=== PATIENT | female | born 1990 | race Caucasian/White ===

== ENCOUNTER → 2019-10-04 | Outpatient (CLI) | payer OTHER ==
--- NOTE | 2019-10-04 11:12 | Diagnostic Imaging Report ---
PROCEDURE: US Non-ob pelvis comp/trans. TECHNIQUE: Multiple realtime grayscale images were obtained of the pelvis in various projections endovaginally. Transabdominal imaging was also performed. INDICATION: Dysmenorrhea. There are no prior studies available for comparison. FINDINGS: The uterus is nongravid and not enlarged measuring 6.1 x 3.4 x 5.1 cm. The endometrial lining is slightly thickened measuring 9 mm (normal 5 mm or less). This finding is nonspecific, however. Correlation with patient's menstrual cycle would be recommended. There is no focal mass involving the uterus to suggest a fibroid. Both ovaries were identified. There is good blood flow to each ovary and there is no sign of torsion. There are a few subcentimeter follicles associated with the ovaries but there is no sign of a solid ovarian mass. There is no pelvic mass identified, but there is a small amount of free fluid. This is nonspecific. IMPRESSION: 1. The uterus is not enlarged. The endometrial lining is slightly thickened but this finding is nonspecific. Recommendations as above. 2. There is no acute abnormality of the ovaries. 3. There is a small amount of nonspecific free fluid. Dictated by: Dictated on workstation # [id number]
== END ==
LOC: RAD 09:30
PROVIDERS: ATTEND Obstetrics & Gynecology
DX: N94.4 Primary dysmenorrhea (principal)
CPT/HCPCS: 76830; 76856

== ENCOUNTER → 2019-12-06 | Outpatient (CLI) | payer OTHER | LOC: LAB 08:56 | PROVIDERS: ATTEND Obstetrics & Gynecology | DX: O20.0 Threatened abortion (principal) | CPT/HCPCS: 36415; 84702 ==

== ENCOUNTER → 2019-12-21 | Outpatient (CLI) | payer OTHER | LOC: LAB 10:02 | PROVIDERS: ATTEND Obstetrics & Gynecology | DX: O20.0 Threatened abortion (principal) | CPT/HCPCS: 36415; 84702 ==

== ENCOUNTER 2020-01-03 07:21 | Day surgery (SDC) | payer OTHER ==
[2020-01-03] VITALS (10 sets, daily range): BP systolic 102–128; BP diastolic 69–92
[~2020-01-03] VITALS: Ht 170.2 cm; Wt 74.5 kg
[2020-01-03] MEDS ORDERED: LIDOCAINE PF 2% 5 ML (XYLOCAINE) VIAL ONE (07:43)
[2020-01-03] MEDS ORDERED: proPOfol 200 MG/20 ML (DIPRIVAN) VIAL IV ONE (07:43)
[2020-01-03] MEDS ORDERED: MIDAZOLAM 2 MG/2 ML (VERSED) VIAL ONE (07:43)
[2020-01-03] MEDS ORDERED: ONDANSETRON 4 MG/2 ML (SDV) Z0FRAN ONE (07:43)
[2020-01-03] MEDS ORDERED: fentaNYL INJECTION 100 MCG/2 ML AMP ONE (07:43)
[2020-01-03] MEDS ORDERED: SEVOFLURANE (ULTANE) 15 ML INHAL SOLN ONE ×3 (07:46→09:57)
[2020-01-03] MEDS ORDERED: LACTATED RINGERS 1,000 ML IV PRN (07:48)
[2020-01-03 08:13] LABS: BASOPHILS % (AUTO) 0 % (0-10); EOSINOPHILS # (AUTO) 0.1 10^3/uL (0.0-0.3); EOSINOPHILS % (AUTO) 3 % (0-10); HEMATOCRIT 41 % (35-52); HEMOGLOBIN 14.1 G/DL (11.5-16.0); LYMPHOCYTES # (AUTO) 1.8 X 10^3 (1.0-4.0); LYMPHOCYTES % (AUTO) 37 % (12-44); MEAN CORPUSCULAR HEMOGLOBIN 31 PG (25-34); MEAN CORPUSCULAR HGB CONC 35 G/DL (32-36); MEAN CORPUSCULAR VOLUME 89 FL (80-99); MEAN PLATELET VOLUME 10.5 FL (7.4-10.4); MONOCYTES # (AUTO) 0.6 X 10^3 (0.0-1.0); MONOCYTES % (AUTO) 12 % (0-12); NEUTROPHILS # (AUTO) 2.3 X 10^3 (1.8-7.8); NEUTROPHILS % (AUTO) 48 % (42-75); PLATELET COUNT 202 10^3/uL (130-400); RED CELL DISTRIBUTION WIDTH 11.6 % (10.0-14.5); WHITE BLOOD COUNT 4.9 10^3/uL (4.3-11.0)
[2020-01-03] MEDS ORDERED: D5 LR IV SOLUTION 1,000 ML IV SCH (09:27)
--- NOTE | 2020-01-03 09:27 | Progress Note-Pre Operative ---
Pre-Operative Progress Note H&P Reviewed The H&P was reviewed, patient examined and no changes noted. Date Seen by Provider: Jan 03, 2020 Time Seen by Provider: 09:20 Date H&P Reviewed: Jan 03, 2020 Time H&P Reviewed: 09:20 Pre-Operative Diagnosis: Incomplete PATI Bacon DO Jan 03, 2020 09:27
--- NOTE | 2020-01-03 09:29 | Discharge Inst-Women's Service ---
Discharge Inst-Women's Serv Depart Medication/Instructions New, Converted or Re-Newed RX: RX on Chart (Patient may take OTC Motrin 600 mg q 6hr) Problems Reviewed?: Yes Consults/Follow Up Additional Follow Up: Yes Orders/Referrals Friday nurse visit for repeat HCG. Follow up with Dr. Chaves in 7-10 days Diet Discharge Diet: No Restrictions Symptoms to Report to : Bleeding Excessive, Pain Increased, Fever Over 101 Degrees F, Vaginal Bleeding Increase, Questions/Concerns PATI CHAVES DO Jan 03, 2020 09:29
[2020-01-03] MEDS ORDERED: KETOROLAC 30 MG/ML VIAL IVP ONE (09:30)
[2020-01-03] MEDS ORDERED: ONDANSETRON 4 MG/2 ML (SDV) Z0FRAN IVP PRN ×2 (09:30→10:15)
[2020-01-03] MEDS ORDERED: KETOROLAC 30 MG/ML VIAL ONE (09:31)
[2020-01-03] MEDS: METHOTREXATE 50 MG/2 ML PF IM ONE ×2 (09:32→09:35)
[2020-01-03] MEDS ORDERED: morphine INJ 10 MG/ML 1ML (SYR OR VIAL) IVP ONE (10:15)
[2020-01-03] MEDS ORDERED: MEPERIDINE (DEMEROL) INJ 50 MG/ML IVP ONE (10:15)
--- NOTE | 2020-01-03 10:50 | NUR ---
TO AMB SURG FROM PAR PER CART. ALERT, DENIES COMPLAINTS. V-PAD IN PLACE WITH MINIMAL AMOUNT OF BLOODY DRAINAGE. PO FLUIDS PROVIDED.
--- NOTE | 2020-01-03 11:45 | NUR ---
UP WITH ASSIST TO BR, GAIT STEADY, VOIDED WITHOUT PROBLEM.
--- NOTE | 2020-01-03 11:55 | NUR ---
TAKING PO FLUIDS WITHOUT PROBLEM. ALERT,DENIES COMPLAINTS. CONTINUES TO HAVE MINIMAL AMOUNT OF BLOODY DRAINAGE ON V-PAD. STATES SHE IS READY FOR DISMISSAL.
--- NOTE | 2020-01-03 14:08 | Anesthesia-General Post-Op ---
General Patient Condition Mental Status/LOC: Same as Preop Cardiovascular: Satisfactory Nausea/Vomiting: Absent Respiratory: Satisfactory Pain: Controlled Complications: Absent Post Op Complications Complications None Follow Up Care/Instructions Patient Instructions None needed. Anesthesia/Patient Condition Patient Condition Patient is doing well, no complaints, stable vital signs, no apparent adverse anesthesia problems. No complications reported per nursing. ABBY RAMOS CRNA Jan 03, 2020 14:08
--- NOTE | 2020-01-03 14:55 | OPERATIVE REPORT ---
DATE OF SERVICE: PREOPERATIVE DIAGNOSES: A 29-year-old G1, P0 with incomplete . POSTOPERATIVE DIAGNOSIS: A 29-year-old G1, P0 with incomplete . PROCEDURE: D and C. SURGEON: Pati Chaves DO ANESTHESIA: LMA. ESTIMATED BLOOD LOSS: Minimal. URINE OUTPUT: 50 mL, clear drained at the end of the procedure. FLUIDS: 800 mL lactated Ringer's solution. FINDINGS: Grossly normal-appearing external female genitalia. Normal-appearing vagina, normal appearing cervix. Uterine sounding depth approximately 7 cm. SPECIMEN SENT: Endometrial curettings. INDICATIONS FOR PROCEDURE: This 29-year-old female is a patient who had initially made appointment for early onset of . Her initial labs were within normal limits; however, she began bleeding and her beta hCG began to drop. Following serial hCGs weekly, it plateaued at around 200 and then stopped going down and started slightly going up into the mid 200s. Due to this persistent, I had concerns with the patient in either having incomplete residual placental tissue that had stayed within the uterus that or a subsequent heterotopic ectopic . I discussed with the patient in detail what all of this meant as far as management and followup. I discussed with the patient proceeding with D and C for the possibility of retained endometrial products and also a dose of methotrexate for any type of ectopic products that may be persistent. After all of her questions were answered, consent was obtained in the preoperative area and the patient was taken to the operating room. OPERATIVE REPORT IN DETAIL: Once in the operating room, anesthesia was found to be adequate, placed in dorsal lithotomy position, prepped and draped in normal sterile fashion. Timeout was performed. Straight catheterization was performed. Weighted speculum was inserted to the patient's vagina. A right angle retractor was used to visualize the cervix, which was grasped at 12 o'clock position using a long Allis clamp. I then gently sound the uterine cavity, depth was found to be approximately 7 cm, gently dilated the cervix using Hanks dilators. I then performed a gentle curettage of all surfaces of the endometrium using a medium size endometrial curette. This tissue is collected and sent as endometrial curettings. I then removed all the other instruments from the patient's vagina. The patient tolerated the procedure well and sent to recovery in stable condition. Lap and sponge counts were correct at the end of the procedure. Instrument counts correct as well. Methotrexate was given while the patient is anesthetized. Job ID: [id number] DocumentID: [id number] Dictated Date: 01/03/2020 10:36:36 Business Strategist Date: 01/03/2020 14:54:31 Dictated By: PATI CHAVES DO
== END 2020-01-03 12:03 | disposition home or self-care (01) ==
LOC: SDC 07:21
PROVIDERS: ATTEND Obstetrics & Gynecology
DX: O03.4 Incomplete spontaneous abortion without complication (principal)
CPT/HCPCS: 36415; 85025; 86850; 86900; 86901; 87081

== ENCOUNTER 2020-01-17 08:23 | Outpatient (RCR) | payer OTHER | END 2020-03-26 | disposition home or self-care (01) | LOC: LAB 08:23 | PROVIDERS: ATTEND Obstetrics & Gynecology | DX: O20.0 Threatened abortion (principal); Z3A.00 Weeks of gestation of pregnancy not specified | CPT/HCPCS: 36415; 84702 ==

== ENCOUNTER → 2020-10-16 | Outpatient (CLI) | payer OTHER ==
--- NOTE | 2020-10-16 16:43 | Diagnostic Imaging Report ---
INDICATION: patient, survey TECHNIQUE: Multiple real-time grayscale images were obtained over the gravid uterus. COMPARISON: None during this FINDINGS: A single live intrauterine fetus is seen measuring 20 weeks 6 days by composite measurements with heart rate of 140 bpm. The fetus is in cephalic presentation. Placenta is posterior with no evidence of previa. Amniotic fluid is qualitatively normal. The distance from the placental tip to the internal cervical os was 6.2 cm. The cervical length is 4.6 cm. survey showed normal-appearing kidneys, bladder and stomach. Normal-appearing intracranial ventricles were seen. Four-chamber heart view appeared normal. Views of the spine were normal. Three-vessel cord and cord insertion appeared normal. Maternal adnexa showed no free fluid. Biometrical measurements are as follows: Biparietal 4.95 cm, age 21 weeks 0 days. Head circumference 18.61 cm, age 21 weeks 0 days. Abdominal circumference 16.41 cm, age 20 weeks 6 days. Femur length 3.27 cm, age 20 weeks 2 days. Sonographic estimate age: 20 weeks 6 days. Sonographic estimated date of delivery: 02/27/2021. Estimated Weight: 357 gm (+/- 52 gm). LMP percentile: 81%. heart rate: 140 beats per minute. number: 1 of 1. IMPRESSION: Single live intrauterine fetus measuring 20 weeks 6 days in size, as described above. There was no detectable abnormality. Dictated by: Dictated on workstation # [id number]
== END ==
LOC: RAD 15:07
PROVIDERS: ATTEND Obstetrics & Gynecology
DX: Z34.02 Encounter for supervision of normal first pregnancy, second trimester (principal); Z3A.20 20 weeks gestation of pregnancy
CPT/HCPCS: 76805

== ENCOUNTER 2021-03-08 19:00 | Inpatient (IN) | payer OTHER ==
[~2021-03-08] VITALS: Ht 170 cm; Wt 93.0 kg
[2021-03-08 19:45] VITALS: BP 130/83
[2021-03-08] MEDS ORDERED: LIDOCAINE/EPI 2% 1:200,00 (XYLOCAINE) 20 ML VIAL INJ PRN (19:45)
[2021-03-08] MEDS ORDERED: TERBUTALINE INJ 1 MG/ML (BRETHINE) AMP SC PRN (19:45)
[2021-03-08] MEDS: LACTATED RINGERS 1,000 ML IV SCH (20:41)
[2021-03-08 20:47] LABS: BILIRUBIN,URINE NEGATIVE (NEGATIVE); CLARITY,URINE CLEAR; COLOR,URINE YELLOW; GLUCOSE, URINE (UA) NEGATIVE (NEGATIVE); KETONES,URINE NEGATIVE (NEGATIVE); LEUKOCYTE ESTERASE ,URINE TRACE (NEGATIVE); NITRITE,URINE NEGATIVE (NEGATIVE); PROTEIN,URINE NEGATIVE (NEGATIVE)
[2021-03-08 20:48] LABS: BASOPHILS % (AUTO) 0 % (0-10); EOSINOPHILS % (AUTO) 0 % (0-10); HEMATOCRIT 37 % (35-52); HEMOGLOBIN 12.7 g/dL (11.5-16.0); LYMPHOCYTES # (AUTO) 2.5 10^3/uL (1.0-4.0); LYMPHOCYTES % (AUTO) 23 % (12-44); MEAN CORPUSCULAR HEMOGLOBIN 29 pg (25-34); MEAN CORPUSCULAR HGB CONC 35 g/dL (32-36); MEAN CORPUSCULAR VOLUME 84 fL (80-99); MONOCYTES # (AUTO) 1.1 10^3/uL (0.0-1.0); MONOCYTES % (AUTO) 10 % (0-12); NEUTROPHILS # (AUTO) 7.3 10^3/uL (1.8-7.8); NEUTROPHILS % (AUTO) 66 % (42-75); PLATELET COUNT 243 10^3/uL (130-400); WHITE BLOOD COUNT 10.9 10^3/uL (4.3-11.0)
[2021-03-08 20:54] LABS: BACTERIA,URINE FEW /HPF; WBC,URINE 0-2 /HPF
[2021-03-08 21:00] VITALS: BP 130/83
[2021-03-08 21:17] VITALS: BP 130/83
[2021-03-08 22:00] VITALS: BP 110/79
[2021-03-08] MEDS: CATHETER FLUSH 10 ML SYR IV SCH (22:22)
[2021-03-08 23:00] VITALS: BP 101/58
[2021-03-09] VITALS (49 sets, daily range): BP systolic 94–137; BP diastolic 54–98
[2021-03-09] MEDS: D5 LR IV SOLUTION 1,000 ML IV SCH ×3 (00:17→15:30)
[2021-03-09] MEDS: CATHETER FLUSH 10 ML SYR IV SCH ×3 (06:28→22:00)
[2021-03-09] MEDS ORDERED: fentaNYL 2 mcg/ml BUPIVA 0.125 100 ML ONE (08:12)
[2021-03-09] MEDS ORDERED: BUPIVACAINE 0.25% 30 ML (SENSORCAINE) VIAL ONE (08:48)
[2021-03-09] MEDS ORDERED: fentaNYL INJ 100 MCG/2 ML AMP ONE ×3 (08:48→18:02)
[2021-03-09] MEDS ORDERED: ONDANSETRON 4 MG/2 ML (SDV) Z0FRAN ONE (09:14)
[2021-03-09] MEDS ORDERED: NALOXONE 0.4 MG/ML 1 ML (NARCAN) VIAL IV PRN ×2 (09:30→17:30)
[2021-03-09] MEDS ORDERED: EPIDURAL (fentaNYL 2 MCG/ML BUPIVA 0.125%)100 ML BAG EPI PRN (09:30)
[2021-03-09] MEDS ORDERED: fentaNYL 2 mcg/ml BUPIVA 0.125 100 ML EPI PRN (09:30)
[2021-03-09] MEDS ORDERED: LACTATED RINGERS 1,000 ML IV ONE (09:30)
[2021-03-09] MEDS ORDERED: fentaNYL INJ 100 MCG/2 ML AMP INJ ONE (09:30)
[2021-03-09] MEDS ORDERED: ONDANSETRON 4 MG/2 ML (SDV) Z0FRAN IV PRN (09:30)
[2021-03-09] MEDS ORDERED: OXYTOCIN PRE-MIX DRIP 500 ML IV SCH (10:00)
[2021-03-09] MEDS ORDERED: OXYTOCIN PRE-MIX DRIP 500 ML IV ONE (10:10)
--- NOTE | 2021-03-09 10:18 | History & Physical-OB ---
OB - Chief Complaint & HPI Date/Time Date of Admission: Date of Admission: Mar 08, 2021 at 19:19 Date seen by a Provider: Mar 09, 2021 Time Seen by a Provider: 07:10 Chief Complaint/History OB-Reason for Admission/Chief: Induction of Labor Hx : 2 Hx Para: 0 Expected Date of Delivery: Mar 06, 2021 Gestational Age in Weeks: 40 Gestational Age in Days: 2 Indication for induction: post dates Admission Nurse Assessment Rev: Yes History of Labs A neg Antibody neg RI RPR NR HBsAg NR HIV NR GC neg GBS neg Allergies and Home Medications Allergies Coded Allergies: No Known Drug Allergies (Unverified , 12/31/19) Patient Home Medication List Home Medication List Reviewed: Yes No Active Prescriptions or Reported Meds OB - History Hx of Present Care: Yes Ultrasounds: Normal mid trimester US Obstetrical Complications: None Medical Complications: None Patient Past Medical History n/a Immunizations Hepatitis A: No Hepatitis B: No OB - Admission Exam Physical Exam Vitals: Vital Signs 03/08/21 03/09/21 03/09/21 21:17 07:30 08:24 Temp 36.9 Pulse 83 Resp 16 B/P (MAP) 129/89 (102) Pulse Ox 97 O2 Delivery Room Air HEENT: NCAT Heart: Rhythm Normal Lungs: Clear Abdomen: Gravid Extremities: Normal Reflexes: Normal Cervical Dilatation: 2cm Effacement: 75% Station: -1 Membranes: Intact Heart Rate: 130's Accelerations: Accelerations Present Decelerations: No Decelerations Short Term Variability: Present Care Home Variability: Average (6-25) Contractions on Admission: < 5 Minutes Apart Intensity: Moderate Labs Laboratory Tests Test 03/08/21 20:00 03/08/21 20:15 Range/Units Urine Color YELLOW Urine Clarity CLEAR Urine pH 7.0 5-9 Urine Specific [place] 1.015 L 1.016-1.022 Urine Protein NEGATIVE NEGATIVE Urine Glucose (UA) NEGATIVE NEGATIVE Urine Ketones NEGATIVE NEGATIVE Urine Nitrite NEGATIVE NEGATIVE Urine Bilirubin NEGATIVE NEGATIVE Urine Urobilinogen 0.2 < = 1.0 MG/DL Urine Leukocyte Esterase TRACE H NEGATIVE Urine RBC (Auto) NEGATIVE NEGATIVE Urine RBC NONE /HPF Urine WBC 0-2 /HPF Urine Squamous Epithelial Cells 2-5 /HPF Urine Crystals NONE /LPF Urine Bacteria FEW H /HPF Urine Casts NONE /LPF Urine Mucus SMALL H /LPF Urine Culture Indicated YES White Blood Count 10.9 4.3-11.0 10^3/uL Red Blood Count 4.40 3.80-5.11 10^6/uL Hemoglobin 12.7 11.5-16.0 g/dL Hematocrit 37 35-52 % Mean Corpuscular Volume 84 80-99 fL Mean Corpuscular Hemoglobin 29 25-34 pg Mean Corpuscular Hemoglobin Concent 35 32-36 g/dL Red Cell Distribution Width 12.4 10.0-14.5 % Platelet Count 243 130-400 10^3/uL Mean Platelet Volume 12.0 9.0-12.2 fL Immature Granulocyte % (Auto) 1 % Neutrophils (%) (Auto) 66 42-75 % Lymphocytes (%) (Auto) 23 12-44 % Monocytes (%) (Auto) 10 0-12 % Eosinophils (%) (Auto) 0 0-10 % Basophils (%) (Auto) 0 0-10 % Neutrophils # (Auto) 7.3 1.8-7.8 10^3/uL Lymphocytes # (Auto) 2.5 1.0-4.0 10^3/uL Monocytes # (Auto) 1.1 H 0.0-1.0 10^3/uL Eosinophils # (Auto) 0.0 0.0-0.3 10^3/uL Basophils # (Auto) 0.0 0.0-0.1 10^3/uL Immature Granulocyte # (Auto) 0.1 0.0-0.1 10^3/uL OB - Assessment/Plan/Diagnosis Assessment Assessment: induction of labor Admission Dx 30 yo @ 40.2 weeks Post dates GBS neg Admission Status: Inpatient Order (span 2 midnights) Reason for Inpatient Admission: IOL at 40 weeks Plan Plan: Induction Induction Method: per Misoprostol Protocol PATI CHAVES DO Mar 09, 2021 10:18
[2021-03-09] MEDS ORDERED: METOCLOPRAMIDE INJ 10 MG/2 ML (REGLAN) ONE (17:05)
[2021-03-09] MEDS ORDERED: ceFAZolin 2 GM IV Premixed 50 ML ONE (17:05)
[2021-03-09] MEDS ORDERED: CITRIC ACID/SOB CIT (BICITRA) 30 ML UDC ONE (17:05)
--- NOTE | 2021-03-09 17:13 | Progress Note ---
Standard Progress Note Progress Notes/Assess & Plan Date Seen by a Provider: Mar 09, 2021 Time Seen by a Provider: 15:30 Progress/Assessment & Plan Patient was admitted for IOL last night. Misoprostol given po overnight. She had AROM performed this AM, became acutely more uncomfortable and received an epidural. She progressed to complete and 0 station with 6 mu pitocin augmentation. She began pushing after she had been complete for one hour. A caput began to develop, but no progression of skull. She pushed both sides in lateral recumbant position, and high fowlers, and hands and knees. For a total for 2 hours with no progression. Due to CPD, decision was made with patient to proceed with delivery. Risk reviewed with patient in detail, all questions answered will proceed when OR staff available to go. PATI CHAVES DO Mar 09, 2021 17:13
[2021-03-09] MEDS ORDERED: LIDOCAINE PF 2% 5 ML (XYLOCAINE) VIAL ONE ×2 (17:26→18:03)
[2021-03-09] MEDS ORDERED: MEASLES,MUMPS,RUBELLA 1 EA INJ SC SCH (17:30)
[2021-03-09] MEDS ORDERED: TETANUS,DIPTH,PERTUSS P/F (BOOSTRIX) 0.5 ML VIAL IM SCH (17:30)
[2021-03-09] MEDS ORDERED: ONDANSETRON 4 MG/2 ML (SDV) Z0FRAN IVP PRN (17:30)
[2021-03-09] MEDS ORDERED: KETAMINE HCL 100 MG/ML 5 ML VIAL ONE (17:46)
[2021-03-09] MEDS ORDERED: KETAMINE SYRINGE 50 MG/5 ML SYRINGE ONE (17:46)
[2021-03-09] MEDS: LACTATED RINGERS 1,000 ML IV SCH (17:55)
[2021-03-09] MEDS ORDERED: BUPIVACAINE 0.25% 30 ML (SENSORCAINE) VIAL INJ ONE (18:00)
[2021-03-09] MEDS ORDERED: proPOfol 200 MG/20 ML (DIPRIVAN) VIAL IV ONE (18:22)
[2021-03-09] MEDS ORDERED: KETOROLAC 30 MG/ML VIAL ONE (18:23)
[2021-03-09] MEDS: KETOROLAC 30 MG/ML VIAL IV SCH ×2 (18:30→23:52)
[2021-03-09] MEDS ORDERED: FAMOTIDINE 20MG/2ML IV (PEPCID) IVP NR (19:00)
[2021-03-09] MEDS: OXYTOCIN PRE-MIX DRIP 500 ML IV SCH ×2 (19:59→21:55)
[2021-03-09] MEDS: DOCUSATE SODIUM 100 MG (COLACE) CAP PO SCH (21:00)
[2021-03-09] MEDS ORDERED: CATHETER FLUSH 10 ML SYR IV SCH (22:00)
[2021-03-10] MEDS: CATHETER FLUSH 10 ML SYR IV SCH
--- NOTE | 2021-03-10 00:34 | OPERATIVE REPORT ---
DATE OF SERVICE: PREOPERATIVE DIAGNOSES: 1. A 30-year-old G2, P0 at 40 weeks and 3 days gestation. 2. Cephalopelvic disproportion. POSTOPERATIVE DIAGNOSES: 1. A 30-year-old G2, P0 at 40 weeks and 3 days gestation. 2. Cephalopelvic disproportion. PROCEDURE: Primary low transverse section. SURGEON: Israel Montelongo DO ANESTHESIA: Epidural, which was bolused. ESTIMATED BLOOD LOSS: 400 mL. URINE OUTPUT: 100 mL clear at the end of the procedure. FLUIDS: 1500 mL lactated Ringer's solution. FINDINGS: A live male weighing 9 pounds 8 ounces, Apgars of 8 and 9. Grossly normal appearing uterus, bilateral fallopian tubes and ovaries. SPECIMEN SENT: None. INDICATIONS FOR PROCEDURE: This 30-year-old female is brought in for induction of labor. Please see my preoperative note for complete details pertaining to her labor course and indications for . After everything was reviewed with the patient in the preoperative area, consent was obtained, the patient was taken to the operating room. OPERATIVE REPORT IN DETAIL: Once in the operating room, epidural analgesia was bolused and found to be adequate. She was placed in supine position with leftward tilt, prepped and draped in normal sterile fashion. Timeout was performed and anesthesia was tested. I then make a Pfannenstiel skin incision through the skin and carried down to underlying fascia using the knife, I then extend the fascial incision laterally using Bovie cautery. The superior aspect of fascial incision was then grasped with Esvin clamps, tented up and dissected off the underlying rectus muscles. The inferior aspect of fascial incision was then grasped with Esvin clamps, tented up and dissected off the underlying rectus muscles. Rectus muscles were then dissected down the midline using blunt traction, which exposed the peritoneum, which I entered bluntly and extended using blunt traction. An Kelvin ring retractor was placed in the peritoneal incision, which offers excellent lateral sidewall retraction. I identified the lower uterine segment, which was found to be thinned out and make a low transverse incision to the vesicouterine peritoneum and bluntly dissected off the lower uterine segment, creating a bladder flap. I then proceeded with my myotomy until membranes were visualized, at which point I extended the uterine incision laterally and superiorly using bandage scissors. Amniotomy through the myotomy is noted at that time. Clear fluid was still noted. The infant was found in vertex presentation, occiput transverse, I elevate the 's head up to the incision where it was delivered through the incision. The nares and oropharynx were bulb suctioned. Anterior and posterior shoulders were delivered. The was then brought to the operative field with cord doubly clamped and cut and infant was handed off to waiting nurses in attendance. Cord blood was collected. Three-vessel cord with intact placenta was delivered spontaneously thereafter. IV Pitocin was initiated to facilitate uterine contraction. Uterine fundus confirmed by manual massage. The uterus was then exteriorized and cleared of all endometrial clots and debris. I then proceeded with closing the uterine incision using 0 Vicryl suture in running locked fashion. Second layer of imbricating 0 Monocryl was placed. Excellent hemostasis was noted after doing this. I then placed the uterus back within the pelvis and copiously irrigated the pelvis using normal saline. Once again, there was no active bleeding noted from any of my dissection planes. I placed Interceed antiadhesive over my low transverse incision. I then removed the Kelvin ring retractor and proceeded with closing the peritoneum using 3-0 Vicryl suture in running fashion. Rectus muscle reapproximated using 3-0 Vicryl suture in interrupted fashion. The fascia was reapproximated using 0 Vicryl suture in running fashion. Subcutaneous tissue was reapproximated using 3-0 plain interrupted subcutaneous stitch and skin reapproximated using 4-0 Monocryl running subcuticular. Dermabond was applied to incision and sterile dressing with adhesive white tape. The patient tolerated the procedure well and sent to recovery area in stable condition. Lap and sponge counts were correct at the end of procedure. Instrument counts correct as well. Two grams of Ancef were given preoperatively for infection prophylaxis. Job ID: [id number] DocumentID: [id number] Dictated Date: 03/09/2021 18:32:06 Logging Shovel Operator Date: 03/10/2021 00:33:14 Dictated By: DO BLAKE SEGURA
[2021-03-10 04:09] VITALS: BP 115/69
[2021-03-10 05:35] LABS: BASOPHILS # (AUTO) 0.1 10^3/uL (0.0-0.1); BASOPHILS % (AUTO) 0 % (0-10); EOSINOPHILS % (AUTO) 0 % (0-10); HEMATOCRIT 33 % (35-52); HEMOGLOBIN 10.9 g/dL (11.5-16.0); LYMPHOCYTES # (AUTO) 1.9 10^3/uL (1.0-4.0); LYMPHOCYTES % (AUTO) 7 % (12-44); MEAN CORPUSCULAR HEMOGLOBIN 29 pg (25-34); MEAN CORPUSCULAR HGB CONC 34 g/dL (32-36); MEAN CORPUSCULAR VOLUME 87 fL (80-99); MEAN PLATELET VOLUME 11.8 fL (9.0-12.2); MONOCYTES # (AUTO) 2.3 10^3/uL (0.0-1.0); MONOCYTES % (AUTO) 8 % (0-12); NEUTROPHILS # (AUTO) 22.9 10^3/uL (1.8-7.8); NEUTROPHILS % (AUTO) 84 % (42-75); PLATELET COUNT 232 10^3/uL (130-400); WHITE BLOOD COUNT 27.4 10^3/uL (4.3-11.0)
[2021-03-10] MEDS: KETOROLAC 30 MG/ML VIAL IV SCH (06:37)
--- NOTE | 2021-03-10 08:33 | Postpartum Progress Note ---
Note Note Day # 1 Subjective: Patient is without complaints. Ambulating, voiding. Tolerating a regular diet without nausea or vomiting. Normal lochia. Pain is well controlled with oral pain medications. Objective: Physical Exam: General - Alert and oriented, no apparent distress Abdomen - Soft, appropriately tender to palpation, non-distended, fundus firm at umbilicus Extremities - no edema, negative Rakesh's bilaterally Incision- c/d/i Assessment: POD 1 PLTCS Acute blood loss anemia acute leukocytosis Plan: Routine care. Encourage breast feeding. Encourage ambulation. Ferrous sulfate supplementation. Plan for discharge tomorrow Vitals - Labs Vital Signs - I&O Vital Signs Date Time Temp Pulse Resp B/P (MAP) Pulse Ox O2 Delivery O2 Flow Rate FiO2 03/10/21 04:09 36.0 89 18 115/69 (84) 98 Room Air 03/09/21 23:53 36.2 101 18 135/77 (96) Room Air 03/09/21 20:46 36.0 03/09/21 19:25 36 16 128/90 (103) 98 Room Air 03/09/21 19:10 36 16 117/82 (94) 97 Room Air 03/09/21 18:55 36.4 16 113/78 (90) 98 Room Air 03/09/21 18:40 36.3 16 125/78 (94) 99 Room Air 03/09/21 18:25 36.7 16 120/78 (92) 99 Room Air 03/09/21 16:30 37.6 91 117/78 (91) 03/09/21 15:45 99 16 115/74 (88) 03/09/21 15:30 106 16 125/78 (94) 03/09/21 15:15 115 16 136/86 (103) 03/09/21 15:00 98 16 134/82 (99) 03/09/21 14:45 113 16 131/82 (98) 03/09/21 14:30 106 16 129/75 (93) 03/09/21 14:15 95 16 126/78 (94) 03/09/21 14:00 90 16 112/78 (89) 03/09/21 13:45 97 16 101/71 (81) 03/09/21 13:30 99 16 108/73 (85) 03/09/21 13:15 87 16 119/79 (92) 03/09/21 13:00 36.8 96 16 105/81 (89) 03/09/21 12:45 93 16 112/66 (81) 03/09/21 12:30 88 16 102/63 (76) 03/09/21 12:15 87 16 104/64 (77) 03/09/21 12:00 82 16 108/57 (74) 03/09/21 11:30 36.8 77 16 109/73 (85) 03/09/21 11:00 83 16 104/73 (83) 03/09/21 10:45 79 16 105/72 (83) 03/09/21 10:30 80 16 104/74 (84) 03/09/21 10:15 77 16 110/74 (86) 99 03/09/21 09:40 80 16 112/78 (89) 98 03/09/21 09:35 80 16 107/74 (85) 98 03/09/21 09:30 85 16 116/69 (85) 98 03/09/21 09:25 82 16 108/68 (81) 98 03/09/21 09:20 82 17 111/57 (75) 03/09/21 09:18 83 17 103/71 (82) 98 03/09/21 09:16 81 17 109/73 (85) 98 03/09/21 09:13 78 17 112/77 (89) 99 03/09/21 09:10 84 18 119/76 (90) 99 03/09/21 09:05 82 18 121/75 (90) 100 03/09/21 09:00 93 18 134/81 (98) 100 03/09/21 08:55 92 18 137/80 (99) 100 03/09/21 08:52 90 18 132/98 (109) 100 I & O 03/10/21 07:00 Intake Total 4061 ml Output Total 550 ml Balance 3511 ml Labs Laboratory Tests 03/10/21 05:13: White Blood Count 27.4H, Red Blood Count 3.73L, Hemoglobin 10.9L, Hematocrit 33L , Mean Corpuscular Volume 87, Mean Corpuscular Hemoglobin 29, Mean Corpuscular Hemoglobin Concent 34, Red Cell Distribution Width 12.7, Platelet Count 232, Mean Platelet Volume 11.8, Immature Granulocyte % (Auto) 1, Neutrophils (%) (Auto) 84H, Lymphocytes (%) (Auto) 7L, Monocytes (%) (Auto) 8, Eosinophils (%) (Auto) 0, Basophils (%) (Auto) 0, Neutrophils # (Auto) 22.9H, Lymphocytes # (Auto) 1.9, Monocytes # (Auto) 2.3H, Eosinophils # (Auto) 0.0, Basophils # (Auto ) 0.1, Immature Granulocyte # (Auto) 0.3H PATI CHAVES DO Mar 10, 2021 08:33
--- NOTE | 2021-03-10 08:39 | Discharge Inst-Women's Service ---
Discharge Inst-Women's Serv Depart Medication/Instructions New, Converted or Re-Newed RX: Transmitted to Pharmacy Final Diagnosis POD 2 PLTCS Acute blood loss anemia Problems Reviewed?: Yes Consults/Follow Up Additional Follow Up: Yes Orders/Referrals DR. Montelongo in 7-10 days and in 6 weeks Activity Activity: Activity as Tolerated Driving Instructions: No Driving for 1 Week NO SMOKING: NO SMOKING Nothing Inside Vagina: No Douching, No [place], No Tampons Diet Discharge Diet: No Restrictions Symptoms to Report to : Bleeding Excessive, Pain Increased, Fever Over 101 Degrees F, Vaginal Bleeding Increase, Questions/Concerns For Any Problems or Questions: Contact Your Physician Skin/Wound Care Infection Signs and Symptoms: Increased Redness, Foul Odor of Wound, Increased Drainage, Skin Itchy or Has a Rash, Increased Swelling, Temperature Above 101 F Operative Area Clean and Dry: Keep Incision Clean/Dry Stitches/Kyle/Dermabond: Dermabond, Care of Stitches Bathing Instructions: PATI Garnica DO Mar 10, 2021 08:39
[2021-03-10] MEDS ORDERED: DOCU100C37 PO (08:41)
[2021-03-10] MEDS ORDERED: ACHD5005 PO (08:41)
[2021-03-10] MEDS ORDERED: IBUP-844 PO (08:41)
[2021-03-10] MEDS: DOCUSATE SODIUM 100 MG (COLACE) CAP PO SCH ×2 (09:21→19:44)
[2021-03-10 09:23] VITALS: BP 107/72
[2021-03-10] MEDS: HYDROcodone/APAP 5 MG/325 MG (LORTAB) TAB PO PRN (10:11)
[2021-03-10] MEDS ORDERED: IBUPROFEN 600 MG (MOTRIN) TAB PO ONE (14:05)
[2021-03-10 14:07] VITALS: BP 118/70
--- NOTE | 2021-03-10 14:08 | Anesthesia-Regional Post-Op ---
Regional Patient Condition Mental Status: Alert, Oriented x3 Circulation: Same as Pre-Op Headache: Absent Sensation: Full Recovery Motor Block: Absent Post Op Complications Complications None Follow Up Care/Instructions Patient Instructions None needed. Anesthesia/Patient Condition Patient is doing well, no complaints, stable vital signs, no apparent adverse anesthesia problems. No complications reported per nursing. HARDEEP SCHWARTZ CRNA Mar 10, 2021 14:07
[2021-03-10] MEDS: IBUPROFEN 600 MG (MOTRIN) TAB PO SCH ×2 (14:09→19:45)
[2021-03-10 19:45] VITALS: BP 107/69
[2021-03-11 01:23] VITALS: BP 124/71
[2021-03-11] MEDS: IBUPROFEN 600 MG (MOTRIN) TAB PO SCH ×2 (01:24→08:19)
[2021-03-11 05:51] LABS: BASOPHILS # (AUTO) 0.1 10^3/uL (0.0-0.1); BASOPHILS % (AUTO) 0 % (0-10); EOSINOPHILS # (AUTO) 0.1 10^3/uL (0.0-0.3); EOSINOPHILS % (AUTO) 1 % (0-10); HEMATOCRIT 32 % (35-52); HEMOGLOBIN 10.8 g/dL (11.5-16.0); LYMPHOCYTES % (AUTO) 23 % (12-44); MEAN CORPUSCULAR HEMOGLOBIN 30 pg (25-34); MEAN CORPUSCULAR HGB CONC 33 g/dL (32-36); MEAN CORPUSCULAR VOLUME 89 fL (80-99); MEAN PLATELET VOLUME 11.5 fL (9.0-12.2); MONOCYTES # (AUTO) 1.3 10^3/uL (0.0-1.0); MONOCYTES % (AUTO) 9 % (0-12); NEUTROPHILS # (AUTO) 8.9 10^3/uL (1.8-7.8); NEUTROPHILS % (AUTO) 66 % (42-75); PLATELET COUNT 218 10^3/uL (130-400); WHITE BLOOD COUNT 13.5 10^3/uL (4.3-11.0)
[2021-03-11 08:17] VITALS: BP 114/73
[2021-03-11] MEDS: DOCUSATE SODIUM 100 MG (COLACE) CAP PO SCH (08:19)
[2021-03-11] MEDS: HYDROcodone/APAP 5 MG/325 MG (LORTAB) TAB PO PRN (08:19)
--- NOTE | 2021-03-11 08:56 | Postpartum Progress Note ---
Note Note Day # 2 Subjective: Patient is without complaints. Ambulating, voiding. Tolerating a regular diet without nausea or vomiting. Normal lochia. Pain is well controlled with oral pain medications. Objective: Physical Exam: General - Alert and oriented, no apparent distress Abdomen - Soft, appropriately tender to palpation, non-distended, fundus firm at umbilicus Extremities - no edema, negative Rakesh's bilaterally Incision- c/d/i Assessment: POD 2 PLTCS Acute blood loss anemia Leukocytosis improved.-afebrile Plan: Routine care. Encourage breast feeding. Encourage ambulation. Ferrous sulfate supplementation. Plan for discharge today Vitals - Labs Vital Signs - I&O Vital Signs Date Time Temp Pulse Resp B/P (MAP) Pulse Ox O2 Delivery O2 Flow Rate FiO2 03/11/21 08:17 36.5 92 18 114/73 (87) 97 Room Air 03/11/21 01:23 36.5 96 16 124/71 (88) 97 Room Air 03/10/21 19:45 36.2 103 18 107/69 (82) 98 Room Air 03/10/21 14:07 36.2 107 18 118/70 (86) 99 Room Air 03/10/21 09:23 35.8 87 18 107/72 (84) 99 Room Air Labs Laboratory Tests 03/11/21 05:42: White Blood Count 13.5H, Red Blood Count 3.64L, Hemoglobin 10.8L, Hematocrit 32L , Mean Corpuscular Volume 89, Mean Corpuscular Hemoglobin 30, Mean Corpuscular Hemoglobin Concent 33, Red Cell Distribution Width 13.0, Platelet Count 218, Mean Platelet Volume 11.5, Immature Granulocyte % (Auto) 0, Neutrophils (%) (Auto) 66, Lymphocytes (%) (Auto) 23, Monocytes (%) (Auto) 9, Eosinophils (%) (Auto) 1, Basophils (%) (Auto) 0, Neutrophils # (Auto) 8.9H, Lymphocytes # (Auto) 3.0, Monocytes # (Auto) 1.3H, Eosinophils # (Auto) 0.1, Basophils # (Auto) 0.1, Immature Granulocyte # (Auto) 0.1 Microbiology 03/08/21 Urine Culture - Final, Complete NO GROWTH PATI CHAVES DO Mar 11, 2021 08:56
== END 2021-03-11 10:55 | disposition home or self-care (01) | DRG 787 ==
LOC: LDRP 19:19
PROVIDERS: ADMIT Obstetrics & Gynecology; ATTEND Obstetrics & Gynecology
PROC: 10D00Z1 Extraction of Products of Conception, Low, Open Approach (ICD-10-PCS; principal; 2021-03-09 17:35)
DX: O48.0 Post-term pregnancy (principal); D62 Acute posthemorrhagic anemia; Z3A.40 40 weeks gestation of pregnancy; Z37.0 Single live birth; O33.9 Maternal care for disproportion, unspecified; O90.81 Anemia of the puerperium; D72.829 Elevated white blood cell count, unspecified
CPT/HCPCS: 36415; 81000; 85025; 86850; 86900; 86901; 87088

== ENCOUNTER → 2022-04-10 | Outpatient (CLI) | payer OTHER ==
[~2022-04-10] MED LIST: ACHD5005 PO; DOCU100C37 PO; IBUP-844 PO
== END ==
LOC: LAB 09:32
PROVIDERS: ATTEND Obstetrics & Gynecology
DX: Z32.01 Encounter for pregnancy test, result positive (principal)
CPT/HCPCS: 36415; 84144; 84702

== ENCOUNTER 2022-06-06 05:40 | Outpatient (CLI) | payer OTHER ==
[~2022-06-06] VITALS: Ht 170.2 cm; Wt 82.3 kg
[2022-06-07] MEDS ORDERED: IBUP-1773 PO (10:16)
[2022-06-07] MEDS ORDERED: ACHD5005 PO (10:16)
== END 2022-06-06 09:10 | disposition home or self-care (01) ==
LOC: PREOP 05:40
PROVIDERS: ATTEND Obstetrics & Gynecology
DX: Z01.818 Encounter for other preprocedural examination (principal)

== ENCOUNTER 2022-06-07 09:10 | Day surgery (SDC) | payer OTHER ==
[2022-06-07] VITALS (10 sets, daily range): BP systolic 103–116; BP diastolic 65–77
[~2022-06-07] VITALS: Ht 170.2 cm; Wt 82.3 kg
[2022-06-07] MEDS ORDERED: LACTATED RINGERS 1,000 ML IV PRN (09:30)
[2022-06-07] MEDS ORDERED: proPOfol 200 MG/20 ML (DIPRIVAN) VIAL IV ONE (10:04)
[2022-06-07] MEDS ORDERED: ONDANSETRON 4 MG/2 ML (SDV) Z0FRAN ONE (10:04)
[2022-06-07] MEDS ORDERED: LIDOCAINE PF 2% 5 ML (XYLOCAINE) VIAL ONE (10:04)
[2022-06-07] MEDS ORDERED: MIDAZOLAM 2 MG/2 ML (VERSED) VIAL ONE (10:05)
[2022-06-07] MEDS ORDERED: fentaNYL INJ 100 MCG/2 ML AMP ONE (10:05)
[2022-06-07] MEDS ORDERED: D5 LR IV SOLUTION 1,000 ML IV SCH (10:15)
[2022-06-07] MEDS ORDERED: KETOROLAC 30 MG/ML VIAL IVP ONE (10:15)
[2022-06-07] MEDS ORDERED: ONDANSETRON 4 MG/2 ML (SDV) Z0FRAN IVP PRN ×2 (10:15→11:00)
[2022-06-07] MEDS ORDERED: HYDROcodone/APAP 5 MG/325 MG (LORTAB) TAB PO PRN (10:15)
--- NOTE | 2022-06-07 10:15 | Discharge Inst-Women's Service ---
Discharge Inst-Women's Serv Depart Medication/Instructions New, Converted or Re-Newed RX: Transmitted to Pharmacy Problems Reviewed?: Yes Consults/Follow Up Additional Follow Up: Yes Orders/Referrals Dr. Chaves in 2 weeks Activity Activity: Activity as Tolerated Driving Instructions: No Driving for 1 Week NO SMOKING: NO SMOKING Nothing Inside Vagina: No Douching, No [place], No Tampons Diet Discharge Diet: No Restrictions Symptoms to Report to : Bleeding Excessive, Pain Increased, Fever Over 101 Degrees F, Vaginal Bleeding Increase, Questions/Concerns For Any Problems or Questions: Contact Your Physician PATI CHAVES DO Jun 07, 2022 10:15
--- NOTE | 2022-06-07 10:15 | Progress Note-Pre Operative ---
Pre-Operative Progress Note Date of Available H&P: Jun 07, 2022 Date H&P Reviewed: Jun 07, 2022 Time H&P Reviewed: 10:00 History & Physical: H&P Reviewed, Patient Examed, No changes noted Pre-Operative Diagnosis: Missed PATI Antoine DO Jun 07, 2022 10:15
[2022-06-07] MEDS ORDERED: ACHD5005 PO (10:16)
[2022-06-07] MEDS ORDERED: IBUP-1773 PO (10:16)
[2022-06-07 10:18] LABS: BASOPHILS % (AUTO) 1 % (0-10); EOSINOPHILS # (AUTO) 0.1 10^3/uL (0.0-0.3); EOSINOPHILS % (AUTO) 1 % (0-10); HEMATOCRIT 44 % (35-52); HEMOGLOBIN 14.8 g/dL (11.5-16.0); LYMPHOCYTES # (AUTO) 1.7 10^3/uL (1.0-4.0); LYMPHOCYTES % (AUTO) 26 % (12-44); MEAN CORPUSCULAR HEMOGLOBIN 30 pg (25-34); MEAN CORPUSCULAR HGB CONC 34 g/dL (32-36); MEAN CORPUSCULAR VOLUME 88 fL (80-99); MEAN PLATELET VOLUME 10.6 fL (9.0-12.2); MONOCYTES # (AUTO) 0.6 10^3/uL (0.0-1.0); MONOCYTES % (AUTO) 9 % (0-12); NEUTROPHILS # (AUTO) 4.1 10^3/uL (1.8-7.8); NEUTROPHILS % (AUTO) 63 % (42-75); PLATELET COUNT 222 10^3/uL (130-400); WHITE BLOOD COUNT 6.6 10^3/uL (4.3-11.0)
[2022-06-07] MEDS ORDERED: SEVOFLURANE (ULTANE) 15 ML INHAL SOLN ONE (10:40)
[2022-06-07] MEDS ORDERED: morphine INJ 10 MG/ML 1ML (SYR OR VIAL) IVP ONE (11:00)
--- NOTE | 2022-06-07 20:21 | OPERATIVE REPORT ---
DATE OF SERVICE: 06/07/2022 PREOPERATIVE DIAGNOSES: 1. A 32-year-old at approximately 8 weeks' gestation. 2. Missed . POSTOPERATIVE DIAGNOSES: 1. A 32-year-old at approximately 8 weeks' gestation. 2. Missed . PROCEDURE: Suction D and C. SURGEON: Pati Chaves DO ANESTHESIA: LMA general. ESTIMATED BLOOD LOSS: 300 mL. URINE OUTPUT: 100 mL clear at the end of the procedure. FLUIDS: 800 mL lactated Ringer's solution. FINDINGS: Grossly normal-appearing external female genitalia. Small to moderate amount of products of conception. SPECIMEN SENT: Products of conception. INDICATIONS FOR PROCEDURE: The patient had been seen in the office earlier this week and confirmed to have a missed AB with gestational sac with no pole developed. This was followed for the process of 2 to 3 weeks without any development of pole or rise in hCG levels. Due to the diagnosis of missed AB, I discussed with the patient proceeding with suction D and C versus outpatient conservative management. The patient wished to proceed with D and C. Risk of the procedure were discussed with the patient in detail and after all of her questions were answered, consent was obtained in the preoperative area and the patient was taken to the operating room. DESCRIPTION IN DETAIL: Once in the operating room, anesthesia was administered and found to be adequate. She was placed in dorsal lithotomy position, prepped and draped in normal sterile fashion. A timeout was performed. A weighted speculum was inserted in the patient's vagina. A right angle retractor was used to visualize the cervix and grasped at the 12 o'clock position using a long Allis clamp. I then gently sound the uterine cavity that was found to be 8 cm. I then gently dilated the cervix using Hanks dilators to maximum dilatation approximately 8 mm, at which point I introduced a 6 mm rigid Srinivasan curette into the uterus. I attached the Mchenry suction and activated the suction to a maximum suction of about 80 mmHg, at which point I rotated the suction curette on multiple passes and removed the products of conception methodically. After this was done on several passes and no more tissue was collected, I then performed a gentle curettage using a medium size endometrial curette after which there is little to no bleeding noted. I make one final pass with the suction curette, little to no bleeding is noted from the external cervical os. Due to this, we deemed that procedure complete, I removed all the instruments from the patient's vagina. The patient tolerated the procedure well and was taken to recovery area in stable condition. Lap and sponge counts were correct at the end of the procedure. Instrument counts correct as well. Job ID: [id number] DocumentID: [id number] Dictated Date: 06/07/2022 11:37:01 Local Owner Operator Truck Driver Date: 06/07/2022 20:14:00 Dictated By: PATI CHAVES DO
--- NOTE | 2022-06-11 10:13 | Anesthesia-General Post-Op ---
General Patient Condition Mental Status/LOC: Same as Preop Cardiovascular: Satisfactory Nausea/Vomiting: Absent Respiratory: Satisfactory Pain: Controlled Complications: Absent Post Op Complications Complications None Follow Up Care/Instructions Patient Instructions None needed. Anesthesia/Patient Condition Patient Condition Post-dated progress note: Patient was seen in PACU on 06-07-22 at approximately 1115 and she was awake and doing well, no complaints, stable vital signs, no apparent adverse anesthesia problems. No complications reported per nursing. AVA VALDIVIA DO Jun 11, 2022 10:13
== END 2022-06-07 12:45 | disposition home or self-care (01) ==
LOC: SDC 09:10
PROVIDERS: ATTEND Obstetrics & Gynecology
DX: O02.1 Missed abortion (principal)
CPT/HCPCS: 36415; 85025; 86850; 86900; 86901; 87081; 88305

== ENCOUNTER → 2022-07-02 | Outpatient (CLI) | payer OTHER ==
[~2022-07-02] MED LIST changes: +IBUP-1773 PO
== END ==
LOC: LAB 15:23
PROVIDERS: ATTEND Obstetrics & Gynecology
DX: O02.1 Missed abortion (principal)
CPT/HCPCS: 36415; 84702